=== PATIENT | female | born 1935 | race African-American/Black ===

== ENCOUNTER → 2021-10-31 | Emergency (ER) | payer OTHER | END | disposition left against medical advice (07) | LOC: ER 09:45 | DX: Z53.21 Procedure and treatment not carried out due to patient leaving prior to being seen by health care provider (principal) ==

== ENCOUNTER 2022-01-18 17:57 | Inpatient (IN) | payer OTHER ==
[~2022-01-18] VITALS: Ht 152.4 cm; Wt 81.6 kg
== END 2022-01-29 14:50 | disposition home or self-care (01) | DRG 373 ==
LOC: ER 17:57 → MEDI 01-19 08:51 → MEDJ 01-19 08:51
PROVIDERS: ADMIT Specialist; ATTEND Specialist
PROC: BW21YZZ Computerized Tomography (CT Scan) of Abdomen and Pelvis using Other Contrast (ICD-10-PCS; principal; 2022-01-19)
DX: A04.5 Campylobacter enteritis (principal); E86.0 Dehydration; E87.8 Other disorders of electrolyte and fluid balance, not elsewhere classified; I11.9 Hypertensive heart disease without heart failure; Z20.822 Contact with and (suspected) exposure to COVID-19; J45.998 Other asthma; R10.9 Unspecified abdominal pain; I25.10 Atherosclerotic heart disease of native coronary artery without angina pectoris

== ENCOUNTER 2022-02-15 11:53 | Emergency (ER) | payer OTHER ==
[~2022-02-15] VITALS: Ht 152.4 cm; Wt 77.1 kg
[2022-02-15] MEDS ORDERED: ATACAND HCT 321 EAC1 (12:26)
[2022-02-15] MEDS ORDERED: CARAFATE1 GM (12:26)
[2022-02-15] MEDS ORDERED: MONTELUKAST SOD10 MG PO (12:27)
[2022-02-15] MEDS ORDERED: SIMVASTATIN80 MG (12:27)
[2022-02-15] MEDS ORDERED: PEPCID AC20 MG (12:28)
[2022-02-15] MEDS ORDERED: AUGMENTIN600 MG/5 M (12:28)
[2022-02-15] MEDS ORDERED: PANTOPRAZOLE SO40 MG PO (12:29)
== END 2022-02-15 14:29 | disposition home or self-care (01) ==
LOC: ER 11:53
DX: I83.018 Varicose veins of right lower extremity with ulcer other part of lower leg (principal); L97.818 Non-pressure chronic ulcer of other part of right lower leg with other specified severity; Z88.2 Allergy status to sulfonamides; Z88.6 Allergy status to analgesic agent; Z91.013 Allergy to seafood; I10 Essential (primary) hypertension

== ENCOUNTER 2023-04-25 09:04 | Emergency (ER) | payer OTHER ==
[~2023-04-25] VITALS: Ht 162.6 cm; Wt 77.1 kg
[~2023-04-25 09:04] MED LIST: ATACAND HCT 321 EAC1; AUGMENTIN600 MG/5 M; CARAFATE1 GM; MONTELUKAST SOD10 MG PO; PANTOPRAZOLE SO40 MG PO; PEPCID AC20 MG; SIMVASTATIN80 MG
== END 2023-04-25 10:19 | disposition home or self-care (01) ==
LOC: ER 09:04
DX: I73.89 Other specified peripheral vascular diseases (principal); M19.90 Unspecified osteoarthritis, unspecified site; J45.909 Unspecified asthma, uncomplicated; E78.00 Pure hypercholesterolemia, unspecified; I10 Essential (primary) hypertension; Z91.041 Radiographic dye allergy status; Z88.6 Allergy status to analgesic agent; Z88.2 Allergy status to sulfonamides